=== PATIENT | female | born 1950 | race Caucasian/White ===

== ENCOUNTER → 2017-01-09 | Outpatient (CLI) | payer MEDICARE ==
--- NOTE | 2017-01-09 13:09 | DI ---
Indication: ITS.REASON: I65.21 OCCLUSION/STENOSIS OF RIGHT CAROTID ARTERY US CAROTID DOPP COMPLETE: TECHNIQUE: Grayscale, color and duplex Doppler imaging was performed of the carotid systems bilaterally. RIGHT: PSV ICA 55 PDV ICA 12 PSV CCA 66 PDV CCA 17 SVR 46 and antegrade PSV ECA 49 ICA Diameter reduction < 50% LEFT: PSV ICA 36 PDV ICA 9 PSV CCA 84 PDV CCA 26 SVR 40 and antegrade PSV ECA 79 ICA Diameter reduction <50% The right vertebral artery is patent with cephalic flow. The left vertebral artery is patent with cephalic flow. IMPRESSION:No hemodynamically significant stenosis currently appreciated. .
== END ==
LOC: IMA 10:40
PROVIDERS: ATTEND Internal Medicine
DX: I65.21 Occlusion and stenosis of right carotid artery (principal)

== ENCOUNTER 2017-01-24 09:14 | Day surgery (SDC) | payer MEDICARE ==
[2017-01-24] VITALS (29 sets, daily range): BP systolic 107–166; BP diastolic 55–80; PULSE 68–81; RESP 12–21; TEMP 96.4–98.8; O2SAT 91–99; Ht 167.6 cm; Wt 96.0 kg
[~2017-01-24] VITALS: Ht 167.6 cm; Wt 96.0 kg
[~2017-01-24 09:14] MED LIST: ALBU8.5H INH; ALPR0.5T8 PO; DIVA500T37 PO; ESOM20CA38 PO; GABA-338 PO; LEVO88TA7 PO; LIDOCAINE 1% (10mg/ml) 2ml SDV INJ ONE; LOSA25TA34 PO; LR 1,000 ML IV SCH; MELO-273 PO
--- OUTSIDE RECORDS SUMMARY | 2017-01-24 09:17 | XMS REPORT ---
Author Author Georges Medina Organization [employer] Address Unknown Phone Unavailable Care Team Providers Care Clinical Staff Anesthesiologist Name Role Phone Georges Medina CP Unavailable Allergies No Known Allergies Problems Problem Type Condition Code Onset Dates Condition Status Assessment Hypothyroidism, unspecified E03.9 Active Assessment Essential (primary) hypertension I10 Active Problem Hypothyroidism, unspecified E03.9 Active Problem Unspecified asthma, uncomplicated J45.909 Active Problem Major depressive disorder, single episode, unspecified F32.9 Active Problem Essential (primary) hypertension I10 Active Assessment Major depressive disorder, single episode, unspecified F32.9 Active Problem Bipolar disorder, unspecified F31.9 Active Problem Anxiety disorder, unspecified F41.9 Active Medications Medication Code System Code Instructions Start Date End Date Status Dosage Levothyroxine Sodium [facility] [address]-44 88 MCG Orally not defined Depakote [facility] [address]-47 500 MG Orally Once a day 1 tablet Alprazolam [facility] [address]-64 0.5 MG Orally Twice a day 1 tablet Losartan Potassium [facility] [address]-52 25 MG Orally Once a day 1 tablet Ventolin HFA [facility] [address]-12 108 (90 Base) MCG/ACT Inhalation every 6 hrs Jul 23, 2016 1 to 2 puffs as needed for shortness of air/wheezing. Gabapentin [facility] [address]-82 300 MG Orally Three times a day 1 capsule Duloxetine HCl [facility] [address]-35 30 MG Orally Three a day 1 capsule Procedures Procedure Coding System Code Date IH MicroAlb/Creat Ratio, Urine CPT-4 80899 Aug 15, 2016 URINALYSIS WITH MICROSCOPIC CPT-4 52298 Aug 15, 2016 IH MicroAlb/Creat Ratio, Urine CPT-4 61793 Aug 15, 2016 Results No Known Results Summary Purpose [employer] Submission
--- OUTSIDE RECORDS SUMMARY | 2017-01-24 09:17 | XMS REPORT ---
Author Author Georges Medina Organization [employer] Address Unknown Phone Unavailable Care Team Providers Care Transportation Clerk Name Role Phone Georges Medina CP Unavailable Allergies No Known Allergies Problems Problem Type Condition Code Onset Dates Condition Status Problem Hypothyroidism, unspecified E03.9 Active Problem Unspecified asthma, uncomplicated J45.909 Active Problem Major depressive disorder, single episode, unspecified F32.9 Active Problem Essential (primary) hypertension I10 Active Problem Bipolar disorder, unspecified F31.9 Active Problem Anxiety disorder, unspecified F41.9 Active Medications No Known Medications Results No Known Results Summary Purpose [employer] Submission
--- OUTSIDE RECORDS SUMMARY | 2017-01-24 09:17 | XMS REPORT ---
Author Author Georges Medina Organization [employer] Address Unknown Phone Unavailable Care Team Providers Care Retail Administrative Assistant Name Role Phone Georges Medina CP Unavailable Allergies No Known Allergies Problems Problem Type Condition Code Onset Dates Condition Status Problem Hypothyroidism, unspecified E03.9 Active Problem Unspecified asthma, uncomplicated J45.909 Active Problem Major depressive disorder, single episode, unspecified F32.9 Active Problem Essential (primary) hypertension I10 Active Assessment Encounter for immunization Z23 Active Problem Bipolar disorder, unspecified F31.9 Active Problem Anxiety disorder, unspecified F41.9 Active Medications Medication Code System Code Instructions Start Date End Date Status Dosage Alprazolam [facility] [address]-01 0.5 MG Orally Twice a day 1 tablet Duloxetine HCl [facility] [address]-63 30 MG Orally Three a day 1 capsule Losartan Potassium [facility] [address]-60 25 MG Orally Once a day 1 tablet Levothyroxine Sodium [facility] [address]-83 88 MCG Orally not defined Depakote [facility] [address]-05 500 MG Orally Once a day 1 tablet Ventolin HFA [facility] [address]-49 108 (90 Base) MCG/ACT Inhalation every 6 hrs Jul 23, 2016 1 to 2 puffs as needed for shortness of air/wheezing. Gabapentin [facility] [address]-09 300 MG Orally Three times a day 1 capsule Procedures Procedure Coding System Code Date ADMN FLU VAC NO FEE SCHED SAME DAY CPT-4 G0008 Aug 09, 2016 FLU VACC PRSV FREE INC ANTIG CPT-4 42450 Aug 09, 2016 Fluzone HIGH DOSE (age 65 and older) CPT-4 57415 Aug 09, 2016 ADMINISTRATION, 1ST IMMUNIZATION CPT-4 04636 Aug 09, 2016 Results No Known Results Immunizations Vaccine Administration Date Fluzone HIGH DOSE (age 65 and older) Aug 09, 2016 Summary Purpose [employer] Submission
--- OUTSIDE RECORDS SUMMARY | 2017-01-24 09:17 | XMS REPORT ---
Author Author Georges Medina Organization [employer] Address Unknown Phone Unavailable Care Team Providers Care Winder Hand Name Role Phone Georges Medina CP Unavailable Allergies No Known Allergies Problems Problem Type Condition Code Onset Dates Condition Status Assessment Bipolar disorder, unspecified F31.9 Active Assessment Hypothyroidism, unspecified E03.9 Active Assessment Essential [...] Instructions Start Date End Date Status Dosage Ventolin HFA [facility] [address]-43 108 (90 Base) MCG/ACT Inhalation every 6 hrs Jul 23, 2016 1 to 2 puffs as needed for shortness of air/wheezing. Depakote [facility] [address]-31 500 MG Orally Once a day 1 tablet Alprazolam [facility] [address]-14 0.5 MG Orally Twice a day 1 tablet Gabapentin [facility] [address]-99 300 MG Orally Three times a day 1 capsule Duloxetine HCl [facility] [address]-46 30 MG Orally Three a day 1 capsule Losartan Potassium [facility] [address]-27 25 MG Orally Once a day 1 tablet Levothyroxine Sodium [facility] [address]-62 88 MCG Orally not defined Procedures Procedure Coding System Code Date COMPREHENSIVE METABOLIC PANEL CPT-4 40218 Aug 09, 2016 LIPID PANEL CPT-4 46304 Aug 09, 2016 COMPLETE CBC W/AUTO DIFF WBC CPT-4 69982 Aug 09, 2016 VALPROIC ACID CPT-4 04044 Aug 09, 2016 TSH CPT-4 02007 Aug 09, 2016 Results Name Result Date Reference Range Unit Abnormality Flag Comprehensive Metabolic Panel (CMP) ----Alkaline Phosphatase 69 [id number] 40-150 U/L ----Bilirubin Total 0.8 45727759 0.2-1.2 mg/dL ----Creatinine 0.76 06244357 0.57-1.11 mg/dL ----Calcium 10.5 20400634 8.9-10.5 mg/dL ----Sodium 140 58029363 135-144 mEq/L ----Globulin 2.8 63207055 1.8-4.0 g/dL ----Potassium 3.9 26306412 3.5-5.2 mEq/L ----Anion Gap 11 58753048 3-20 ----Chloride 106 56676076 99-111 mEq/L ----AST (SGOT) 33 62141431 5-34 U/L ----CO2 23 71556614 22-31 mEq/L ----Glucose 137 48584048 70-99 mg/dL H ----Albumin 3.9 07134802 3.4-4.8 g/dL ----ALT (SGPT) 29 98900770 0-55 U/L ----BUN 10 76449918 10-20 mg/dL ----Protein 6.7 20794284 6.0-7.6 g/dL Lipid Panel ----VLDL Cholesterol 37 56661440 0-28 mg/dL H ----LDL Cholesterol 115 76572337 0-130 mg/dL ----Cardiac Risk 4.4 15779067 0.0-5.0 ----Cholesterol 197 06199983 0-199 mg/dL ----HDL Cholesterol 45 37702546 40-84 mg/dL ----Triglycerides 186 10115788 0-149 mg/dL H In House Microalb/Creat Ratio, Urine CBC With Platelet and Differential ----MCHC 32.5 27840139 32.0-36.0 g/dL ----MCH 30.2 28417012 27.0-32.0 pg ----MPV 12.1 10622559 8.8-14.8 fL ----RDW 13.0 54437341 11.5-14.5 % ----Eosinophils 8 65371918 0-4 % H ----Basophils 0 69833363 0-2 % ----Immature Granulocytes 0.1 77036907 0.0-1.0 % ----Absolute Neutrophils 2.39 45381700 1.90-7.00 10*3 ----Platelet Count 223 03698485 150-400 K/uL ----Absolute Eosinophils 0.60 95328168 0.00-0.50 10*3 H ----HCT 45.2 84807529 37.0-47.0 % ----Absolute Basophils 0.03 39215954 0.00-0.20 10*3 ----MCV 93.0 76814387 82.0-99.0 fL ----RBC 4.86 10051413 4.00-5.20 10*6/uL ----Absolute Lymphocytes 3.72 12840209 0.80-3.30 10*3 H ----Absolute Monocytes 0.54 74462449 0.30-1.00 10*3 ----HGB 14.7 38406511 12.0-16.0 g/dL ----Monocytes 7 57713475 4-11 % ----WBC 7.3 34963422 4.8-10.8 K/uL ----Neutrophils 33 24272204 51-75 % L ----Lymphocytes 51 53962566 20-46 % H Non-HDL Cholesterol ----Non-HDL Cholesterol 152 40863932 0-159 mg/dL Valproic Acid (Depakote) ----Valproic Acid 44 41666446 50-100 ug/mL L eGFR ----eGFR >60 82095293 >60 mL/min TSH ----TSH 5.23 34795663 0.35-4.94 uIU/mL H Urinalysis with Microscopic Summary Purpose [employer] Submission
--- OUTSIDE RECORDS SUMMARY | 2017-01-24 09:17 | XMS REPORT ---
Author Author Georges Medina Organization [employer] Address Unknown Phone Unavailable Care Team Providers Care Bean Picker Name Role Phone Georges Medina CP Unavailable Allergies, Adverse Reactions, Alerts Substance Reaction Event Type N.K.D.A. Info Not Available Non Drug Allergy Problems Problem Type Condition Code Onset Dates Condition Status Assessment Bipolar disorder, unspecified F31.9 Active Assessment Hypothyroidism, unspecified E03.9 Active Assessment Unspecified asthma, uncomplicated J45.909 Active Problem Hypothyroidism, unspecified E03.9 Active Problem Unspecified asthma, uncomplicated J45.909 Active Problem Major depressive disorder, single episode, unspecified F32.9 Active Problem Essential (primary) hypertension I10 Active Assessment Major depressive disorder, single episode, unspecified F32.9 Active Problem Bipolar disorder, unspecified F31.9 Active Problem Anxiety disorder, unspecified F41.9 Active Assessment Encounter for screening mammogram for malignant neoplasm of breast Z12.31 Active Assessment Essential (primary) hypertension I10 Active Assessment Anxiety disorder, unspecified F41.9 Active Medications Medication Code System Code Instructions Start Date End Date Status Dosage Gabapentin [facility] [address]-42 300 MG Orally Three times a day 1 capsule Losartan Potassium [facility] [address]-51 25 MG Orally Once a day 1 tablet Alprazolam [facility] [address]-41 0.5 MG Orally Twice a day 1 tablet Duloxetine HCl [facility] [address]-12 30 MG Orally Three a day 1 capsule Ventolin HFA [facility] [address]-20 108 (90 Base) MCG/ACT Inhalation every 6 hrs Jul 23, 2016 1 to 2 puffs as needed for shortness of air/wheezing. Depakote [facility] [address]-01 500 MG Orally Once a day 1 tablet Levothyroxine Sodium [facility] [address]-74 88 MCG Orally not defined Procedures Procedure Coding System Code Date OFFICE VISIT, EST-LOW COMPLEXITY (15 MIN.) CPT-4 24848 Jul 23, 2016 [facility] visit Established Patient CPT-4 G0467 Jul 23, 2016 Vital Signs Date/Time: Jul 23, 2016 Temperature 97.0 F Height 67 in Weight 204.4 lbs Blood Pressure Diastolic 66 mm Hg Blood Pressure Systolic 128 mm Hg Cardiac Monitoring Heart Rate 70 /min BMI 32.01 Index Oximetry 98 % Respiratory Rate 16 /min Results No Known Results Summary Purpose [employer] Submission
--- OUTSIDE RECORDS SUMMARY | 2017-01-24 09:17 | XMS REPORT ---
Author Author Georges Medina Organization [employer] Address Unknown Phone Unavailable Care Team Providers Care Investment Representative Name Role Phone Georges Medina CP Unavailable [...]
--- NOTE | 2017-01-24 11:35 | ANESPREOP ---
Anesthesia Record Date and Time DATE: 01/24/17 TIME: 11:29 Proposed Surgical Procedure ROBOTIC LAP. VENTRAL HERNIA REPAIR Allergies: Coded Allergies: No Known Allergies (Unverified , 01/23/17) Ht/Wt/BMI Height: 5 ' 6.00 " Weight: 94.300 kg BMI: 33.6 kg/m2 Vital Signs Date Time Temp Pulse Resp B/P Pulse Ox O2 Delivery O2 Flow Rate FiO2 01/24/17 10:22 98.8 01/24/17 09:46 16 01/24/17 09:26 81 134/80 94 Room Air Medications Inpatient Medications Current Medications Medications (Trade) Dose Ordered Sig/Tino Start Time Stop Time Status Last Admin Dose Admin Lactated Ringer's (Lactated Ringers) 1,000 ml @ 50 mls/hr Q20H 01/24/17 07:00 Albuterol Sulfate (Proair HFA 90 mcg/actuation) 8.5 Gm Hfa.aer.ad, 2 PUFF INH DAILY, (Reported) Last Taken: on 01/22/17 0800 Alprazolam (Alprazolam) 0.5 Mg Tablet, 1 TAB PO BID PRN for ANXIETY, (Reported) Last Taken: on 01/21/17 2200 Divalproex Sodium (Divalproex Sodium) 500 Mg Tablet.dr, 1 TAB PO HS, (Reported) Last Taken: on 01/22/17 2200 Esomeprazole Magnesium (Esomeprazole Magnesium ) 20 Mg Capsule.dr, 1 TAB PO DAILY, (Reported) Last Taken: on 01/17/17 Gabapentin (Gabapentin) 300 Mg Capsule, 1 TAB PO BID, (Reported) Last Taken: on 01/23/17 2200 Levothyroxine Sodium (Levothyroxine Sodium) 88 Mcg Tablet, 1 TAB PO DAILY, (Reported) Last Taken: on 01/24/17 0830 Losartan Potassium (Losartan Potassium) 25 Mg Tablet, 1 TAB PO DAILY, (Reported) Last Taken: on 01/24/17 0830 Meloxicam (Meloxicam) 7.5 Mg Tablet, 1 TAB PO DAILY, (Reported) Last Taken: on 01/23/17 0800 Currently on Beta Brian: No Medical/Surgical History Anesthesia PMH: Reports: *Diabetes (DIET CONTROLLED, avg bs at home 120), * Dyspnea (USES INHALER), *Hypertension (TAKES MEDS ), Anxiety, Arthritis, Depression (medicated ), Hiatal Hernia, Reflux (TAKES NEXIUM), Thyroid Disease ( ON LEVOTHYROXINE), Denies: Anesthesia Reactions (NO AIRWAY ISSUES ), Cancer, Clotting Problems, Glaucoma, Malignant Hyperthermia, Sleep Apnea Smoking Status: Never smoker Substance Use Type: does not use Alcohol Intake: none HX of Last Menstrual Period: TOTAL HYST. Past Surgical History Orthopedic Surgeries: Abdominal Surgeries: Genitourinary Surgeries: Cardiac Surgeries: Endocrine Surgeries: Reproductive Surgeries: Yes - TOTAL HYST. Neurological Surgeries: Ear Surgeries: Nose Surgeries: Throat Surgeries: Other Surgeries: Yes - COLONOSCOPY AND EGD Anesthesia Adverse Reactions: FOUND none Family Hx of Anesthesia Advers: none Hx of Motion Sickness: No Pertinent Findings EKG Rhythm: Sinus Rhythm Physical Exam Respiratory: Bilat breath sounds equal, Lungs clear Cardiovascular: FOUND Regular rate, rhythm, FOUND No murmur Airway Assessment Mallampati Score: I TMD: 2 Fingerbreadths Neck Extension: Fair Teeth: Upper Dentures, Poor Dentation Overall Assessment: No Airway Concerns ASA: 2 Plan Anesthesia Plan: GETA (bilaterl TAP blocks post op in needed ) Discussion Discussed risks/options/alternatives of anesthesia and questions answered. Patient consents. Nursing pain assessment noted. Attestation Statement Prior to the delivery of any anesthetic medication, I examined the patient, developed the plan, obtained the patient's consent and discussed the risk and benefits of the procedure with the patient/guardian. MAYTE ROMO CRNA Jan 24, 2017 11:33
[2017-01-24] MEDS ORDERED: METOCLOPRAMIDE 10mg/2ml INJECTION IV PRN (11:45)
[2017-01-24] MEDS ORDERED: ONDANSETRON 4mg/2ml INJECTION IV PRN ×2 (11:45→14:15)
[2017-01-24] MEDS ORDERED: ERTAPENEM 1 G in NORMAL SALINE 100 ML IV ONE (11:45)
[2017-01-24] MEDS ORDERED: FENTANYL 250mcg/5ml INJECTION ONE (11:58)
[2017-01-24] MEDS ORDERED: KETAMINE 500mg/10ml INJECTION ONE (11:58)
[2017-01-24] MEDS ORDERED: LIDOCAINE 2% (20mg/ml) 5ml PF SDV ONE (11:59)
[2017-01-24] MEDS ORDERED: ROCURONIUM 50mg/5ml INJECTION IV ONE (11:59)
[2017-01-24] MEDS ORDERED: PROPOFOL 200mg 20 ML IV ONE (11:59)
[2017-01-24] MEDS ORDERED: MIDAZOLAM 2mg/2ml INJECTION ONE (11:59)
[2017-01-24] MEDS ORDERED: BUPIVACAINE 0.25%/EPI 1:200,000 30ml SDV ONE (12:20)
[2017-01-24] MEDS ORDERED: METOCLOPRAMIDE 10mg/2ml INJECTION ONE (12:38)
[2017-01-24] MEDS ORDERED: ONDANSETRON 4mg/2ml INJECTION ONE (12:38)
[2017-01-24] MEDS ORDERED: DEXAMETHASONE 4mg/ml - 1ml INJECTION ONE (12:38)
[2017-01-24] MEDS ORDERED: DESFLURANE 240 ML LIQUID IH ONE (12:58)
[2017-01-24] MEDS ORDERED: LR 1,000 ML IV SCH (14:09)
[2017-01-24] MEDS ORDERED: KETOROLAC 15mg/ml INJECTION IV PRN (14:15)
[2017-01-24] MEDS ORDERED: ALPRAZOLAM 0.5 MG TABLET PO PRN (14:15)
[2017-01-24] MEDS ORDERED: MORPHINE SULFATE 4 MG SYRINGE IV PRN (14:15)
[2017-01-24] MEDS ORDERED: IBUPROFEN 600 MG TABLET PO PRN (14:15)
--- NOTE | 2017-01-24 14:17 | GSPOSTPN ---
Procedure Procedure Date: Jan 24, 2017 Surgeon: Bear Assisting Surgeon: Surya Ness Anesthesia: Local, GETA ASA: 2 Procedure Robotic supraumbilical/ventral hernia repair with mesh GS Diagnosis Postop Diagnosis ventral/supraumbilical hernia Complications Complications Estimated Blood Loss See Anesthesia Record. Vital Signs See Anesthesia and PACU record. PHI NESS APRN, MIAS Jan 24, 2017 14:17
[2017-01-24] MEDS: HYDROMORPHONE 2mg/ml INJECTION IV PRN ×3 (14:34→14:56)
--- NOTE | 2017-01-24 14:50 | ANESPO ---
Post-Op Note Date 01/24/17 Time: 14:40 Status Pt Participated in Evaluation: Pt participated in person Vital Signs Date Time Temp Pulse Resp B/P Pulse Ox O2 Delivery O2 Flow Rate FiO2 01/24/17 14:45 16 01/24/17 14:40 74 142/77 98 Nasal Cannula 2.00 01/24/17 14:14 97.9 Respiratory Function: Airway patent Mental Status: Lethargic Pain Level Intensity: 0 Hydration: IV infusing Complications during Recovery None apparent Follow-Up Instructions Instructions Per Surgeon MAYTE ROMO CRNA Jan 24, 2017 14:50
--- NOTE | 2017-01-24 15:15 | NUR ---
ARRIVED TO FLOOR PT ARRIVED TO THE FLOOR AT THIS TIME. POST OP VITAL SIGNS STARTED, ON RA. DENIES NEED FOR PAIN MEDICATION AT THIS TIME. WILL CONTINUE TO MONITOR.
[2017-01-24] MEDS: POLYETHYL.GLYCOL 3350 PACKET 17gm PO SCH (17:32)
[2017-01-24] MEDS: HYDROCODONE/APAP 5 mg/325 mg TABLET PO PRN ×2 (17:37→23:26)
--- NOTE | 2017-01-24 19:16 | NUR ---
PROGRESS NOTE PT RESTING IN BED, PT HAS EATEN DINNER AND HAS HAD NO NAUSEA SINCE ARRIVING TO THE FLOOR. PT WAS GIVEN ONE PRN DOSE OF TORADOL AND ONE DOSE OF NORCO FOR INCREASED PAIN. PT IS ALERT AND ORIENTED X3, VITAL SIGNS ARE STABLE, PT ON RA. PT HAS FOUR LAP SITES TO HER ABDOMEN THAT ARE COVERED IN DERMABOND WITH A ABDOMINAL BINDER IN PLACE. PT HAS COMPLETED DISCHARGE CRITERIA AT THIS TIME. PT HAS CALL LIGHT WITHIN REACH, NO CONCERNS NOTED.
[2017-01-24] MEDS: GABAPENTIN 300 MG CAPSULE PO SCH (20:59)
[2017-01-24] MEDS ORDERED: DIVALPROEX 500 MG TABLET PO SCH (22:00)
[2017-01-25 04:20] VITALS: BP 132/67; PULSE 67; RESP 18; TEMP 96.8; O2SAT 95
--- NOTE | 2017-01-25 06:01 | NUR ---
STATUS PT SLEPT WELL THROUGH THE NIGHT. PT REPORTS THE PAIN MEDS HAVE WORKED WELL. PT REPORTS ABD BEING SORE AND ACHE BUT DOING WELL. PT DENIES NAUSEA. PT REPORTS BEING READY TO GO HOME AFTER BREAKFAST. PT UP WELL WITH STAND BY ASSIST TO THE RESTROOM
[2017-01-25] MEDS ORDERED: LEVOTHYROXINE 88 MCG TABLET PO SCH (06:30)
[2017-01-25] MEDS ORDERED: PANTOPRAZOLE 20 MG TABLET PO SCH (06:30)
[2017-01-25] MEDS: HYDROCODONE/APAP 5 mg/325 mg TABLET PO PRN (07:05)
[2017-01-25 08:22] VITALS: PULSE 67; RESP 18
[2017-01-25 08:23] VITALS: BP 151/69; PULSE 71; RESP 16; TEMP 97.4; O2SAT 97
[2017-01-25] MEDS: POLYETHYL.GLYCOL 3350 PACKET 17gm PO SCH (08:25)
[2017-01-25] MEDS: GABAPENTIN 300 MG CAPSULE PO SCH (08:26)
--- NOTE | 2017-01-25 08:26 | NUR ---
MEDICATIONS PT REFUSES MEDICATIONS TO BE ADMINISTERED HERE, WILL TAKE A.M. MEDICATIONS AT HOME. DISCHARGE PENDING MEDICATION ORDERS. DOCTOR PAGED. WILL PROCEED WITH DISCHARGE ONCE MEDICATIONS ARE PUT IN FOR DISMISSAL. FAMILY IN ROOM.
[2017-01-25] MEDS ORDERED: MELOXICAM 7.5 MG TABLET PO SCH (09:00)
[2017-01-25] MEDS ORDERED: ALBUTEROL INH.SOLN. 2.5mg/3ml (0.083%) Neb. AEROSOL SCH (09:00)
[2017-01-25] MEDS ORDERED: HYDR-4246 PO (09:30)
--- NOTE | 2017-01-25 10:15 | NUR ---
DISCHARGE PT ALERT AND ORIENTED X3, DENIES C/P,N/V AND SOA. PATIENT DRESSED AND READY FOR DISCHARGE, FAMILY AT BEDSIDE. DISCHARGE INSTRUCTIONS GIVEN INCLUDING THE FOLLOWING: CONTINUE HOME MEDICATION TAKING PREVIOUS TO HOSPITALIZATION, PRESCRIPTION GIVEN FOR PAIN MEDICATION, IV DISCONTINUED WITH CATHETER TIP INTACT. PATIENTS BELONGINGS ROUNDED UP BY FAMILY AND TAKEN OUT TO CAR. PT DISCHARGED TO FRONT ENTRANCE VIA WHEELCHAIR.
--- NOTE | 2017-01-25 10:48 | NUR ---
CM CM VISITED PT AND DAUGHTER. CM EXPLAINED ROLE AND PROVIDED CONTACT INFORMATION. PT PLANS TO RETURN HOME TODAY. PT DENIES NEEDS. PT IS AWARE TO CONTACT CM IF NEEDS ARISE.
--- NOTE | 2017-01-25 11:16 | OPNOTEF ---
DATE OF OPERATION 01/24/17 SURGEON Carlos Sifuentes M.D. VACUUM FURNACE OPERATOR Surya Ness APRN PREOPERATIVE DIAGNOSIS Symptomatic incarcerated supraumbilical/ventral hernia. POSTOPERATIVE DIAGNOSIS Symptomatic incarcerated supraumbilical/ventral hernia. PROCEDURE Robotic assisted laparoscopic repair of incarcerated supraumbilical/ventral hernia with incorporation of mesh. ANESTHESIA General endotracheal. FLUIDS Please see chart. INDICATIONS Mrs. Ngo is a 66-year-old female who has recently had a component of some abdominal discomfort involving her upper abdomen. Upon examination the patient was found have a firm mass that increased upon cough and Valsalva located about 4 cm above the umbilicus within the midline location. As a result of above indications recommended to the patient she undergo elective repair of her suspected incarcerated hernia. Patient presents today for this procedure. PROCEDURE After informed consent was obtained patient was brought to the operative suite and placed on the table in supine fashion. The abdomen was then prepped and draped in sterile fashion. Formal time-out was then completed. Next 0.25% Marcaine and epinephrine was injected just beneath the level of the left subcostal margin. A 4-5 mm incision was made through the of analgesia. Veress needle was then carefully introduced through this small incision into the peritoneal cavity in a slightly cephalad fashion. Pneumoperitoneum was established to a patient pressure of 15 mmHg of carbon dioxide. Additional 0.25% of Marcaine and epinephrine was injected along the left lateral abdominal wall. A 2 cm incision was then made overlying area of analgesia. A 1-1/2 cm incision was made overlying the of analgesia. A camera port was then advanced through this small incision in the peritoneal cavity. Laparoscopic then placed through the camera port and one could see the Veress needle as it coursed through the anterior abdominal wall within the left upper quadrant. Veress needle was removed under visualization. A 12 mm air seal port was then placed within the left upper quadrant as well as an additional 8 mm port within the left lower quadrant along the left lateral abdominal wall. Each port site was preinjected with 0.25% Marcaine with epinephrine and placed under visualization. The patient was then slightly rotated towards her left and the bed was flexed. Robot was then docked perpendicular coming forth from the patient's right side. Next, utilizing fenestrated bipolar grasper through robotic arm two and scissors robotic arm one the adhesions that were present were then taken down. The patient had a falciform ligament that extended almost towards the umbilicus. The Falciform ligament was taken down and one could then see a small fascial defect just beneath the falciform ligament about 4 cm above the level of the umbilicus. This fascial defect contained some preperitoneal fat within it. The preperitoneal fat that was incarcerated within the hernia defect was then grasped, retracted outwardly back into the peritoneal cavity. Preperitoneal dissection was performed around the fascial defect that was about a centimeter in diameter. Peritoneum was dissected off the posterior rectus sheath. Both the patient's left and right about 8 cm circumferentially around the defect itself. Next, attention was directed towards closure of the defect. The robotic needle flatbed truck driver was replaced within robotic arm # one. The fascial defect that was again fairly small and only on the order of perhaps 1-2 cm in diameter was then closed in a running fashion with #1 V-Loc suture. Defect was closed initially in a cephalad to caudad direction and then again oversewn in a caudad to cephalad direction. This resulted in nice imbrication of the fascial edges. Then had my surgical assistant certified place a 6-cm piece of Ventralex mesh through the air seal port. My surgical assistant certified then placed a laparoscopic suture passer through the anterior abdominal wall and through the midportion of this fascial defect had been closed primarily. Tail portions of this Ventralex mesh were then grasped and brought forth up through the small skin incision until the Ventralex mesh was taut against the anterior abdominal wall. Next the mesh was then imbricated circumferentially in a running fashion you utilizing a 2-0 V-Loc suture. Tail portion of the mesh were then transected as close to the anterior abdominal wall as possible so that they did not extend near the skin surface. Next the peritoneum that had been opened was then closed in a running locking fashion with 2-0 V-Loc suture. This resulted in closure of the peritoneum overlying the Ventralex mesh. The needles that were utilized were then removed. Instrument and needle count was performed and found be correct. Prior areas of dissection were inspected found be hemostatic in nature. Robot was then undocked. The camera was then replaced within the air seal port and the camera port was removed and the fascial opening at this port site was then closed in a [id number] fashion with 0 Vicryl utilizing laparoscopic suture passer. Camera port was then placed back through the [id number] suture before had been secured and then the air seal port was now removed. The fascial opening at the air seal port was then also closed in a [id number] fashion with 0 Vicryl utilizing laparoscopic suture passer. This suture was then secured resulting in The nice imbrication of the fascia. 8 mm port was then removed under visualization. Camera port was then lastly removed as the pneumoperitoneum was being released. Previously placed [id number] suture at this site was then secured resulting in imbrication the fascial edges. All skin incisions were closed in a similar fashion for Monocryl. Dermabond was placed overlying the incision. The patient is in process awakening from her anesthetic and will be sent back to recovery room once deemed in stable condition. Additionally, it should be noted that Surya Ness APRN, was present throughout the entire case and played a pivotal role in providing assistance and exposure during the course of the procedure. KEKE
== END 2017-01-25 10:15 | disposition home or self-care (01) ==
LOC: SRG 09:14 → SCU 09:14
PROVIDERS: ATTEND Surgery
DX: K43.6 Other and unspecified ventral hernia with obstruction, without gangrene (principal); I10 Essential (primary) hypertension; E11.9 Type 2 diabetes mellitus without complications; E03.9 Hypothyroidism, unspecified; J45.909 Unspecified asthma, uncomplicated; F41.9 Anxiety disorder, unspecified; E78.00 Pure hypercholesterolemia, unspecified; F31.9 Bipolar disorder, unspecified; Z79.1 Long term (current) use of non-steroidal anti-inflammatories (NSAID); Z79.899 Other long term (current) drug therapy
CPT/HCPCS: 49653; A9270; J1100; J1170; J1885; J2250; J2405; J2704; J2765; J3010; J7030; J7120; S2900

== ENCOUNTER → 2017-02-13 | Outpatient (CLI) | payer MEDICARE ==
[~2017-02-13] MED LIST changes: +HYDR-4246 PO; -LIDOCAINE 1% (10mg/ml) 2ml SDV INJ ONE; -LR 1,000 ML IV SCH
== END ==
LOC: IMA 10:38
PROVIDERS: ATTEND Internal Medicine Endocrinology, Diabetes & Metabolism
DX: M81.0 Age-related osteoporosis without current pathological fracture (principal); E83.52 Hypercalcemia; Z82.69 Family history of other diseases of the musculoskeletal system and connective tissue

== ENCOUNTER → 2017-03-10 | Outpatient (CLI) | payer MEDICARE ==
--- NOTE | 2017-03-10 10:48 | DI ---
Indication: ITS.REASON: E21.0 Primary hyperparathyroidism; E83.52 Hypercalcemia PROCEDURE: NM PARATHYROID WITH SPECT: Encounter: Initial Technique: 21.4 mCi of Tc-99m sestamibi was administered intravenously via the left antecubital fossa. Early and delayed planar and SPECT images were obtained. Findings: Early images demonstrate diffuse radiotracer uptake in both lobes of the thyroid gland. Delayed images demonstrate slight washout of the radiotracer from the thyroid gland with delayed clearance in the right upper parathyroid gland. 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 .
== END ==
LOC: IMA 07:29
PROVIDERS: ATTEND Internal Medicine Endocrinology, Diabetes & Metabolism
DX: E21.0 Primary hyperparathyroidism (principal); D44.2 Neoplasm of uncertain behavior of parathyroid gland
CPT/HCPCS: 78071; A9500